=== PATIENT | male | born 1960 | race Asian ===

== ENCOUNTER 2022-02-15 13:53 | Inpatient (IN) ==
[2022-02-15 15:14] LABS: Appearance Urine Turbid (Clear); Bacteria Urine Automated 4+ (Negative); Bilirubin Urine Negative (Negative); Blood Urine 3+ (Negative); Color Urine Yellow; Epithelial Cell Urine Auto >30 /lpf (0-5); Glucose Urine UA Negative (Negative); Ketones Urine Negative (Negative); Leukocyte Esterase Urine 3+ (Negative); Nitrite Urine Positive (Negative); Protein Urine 2+ (Negative); Specific Gravity Urine 1.014 (1.000-1.030); Urobilinogen Urine Negative (Negative); WBC Urine Automated >30 /hpf (0-5); pH Urine 5.5 (4.5-7.5)
[2022-02-15] MEDS ORDERED: SODIUM CHLORIDE 0.9% 1000ML 1,000 ML IV ONE ×2 (15:19→16:46)
[2022-02-15 15:27] LABS: Hematocrit (blood only) 45.7 % (40.1-51.0); Hemoglobin 15.8 g/dl (14.0-18.0); Immature Granulocytes # (auto) 0.03 K/uL (0.00-0.02); Immature Granulocytes % (auto) 0.7 %; Lymphocytes # (auto) 0.13 K/uL (1.2-3.4); Lymphocytes % (auto) 3.2 %; Mean Corpuscular Hemoglobin 30.6 pg (25.0-34.0); Mean Corpuscular Hgb Conc 34.6 g/dL (32.0-36.0); Mean Corpuscular Volume 88.4 fL (80.0-100.0); Mean Platelet Volume 11.5 fL (9.4-12.4); Neutrophils # (auto) 3.46 K/uL (1.4-6.5); Neutrophils % (auto) 86.1 %; Platelet Count 68 K/uL (130-400); Platelet Estimate Decreased (Normal); RDW Coefficient of Variation 12.5 % (11.5-14.5); RDW Standard Deviation 40.5 fL (36.4-46.3); Red Blood Count 5.17 M/uL (4.63-6.08); White Blood Count 4.02 K/ul (4.8-10.8)
[2022-02-15 15:43] LABS: RBC Urine Automated 0-4 /hpf (0-4)
[2022-02-15] MEDS ORDERED: CEFEPIME 2,000 MG/20 ML VIAL IV STA (15:44)
--- NOTE | 2022-02-15 15:58 | XRay Report ---
XR chest 1V portable CLINICAL HISTORY: Fever. COMPARISON STUDY: No previous studies for comparison. FINDINGS: Lung volumes are normal. Lungs are clear. There is no pneumothorax or pleural effusion. Car diac size is normal. Mediastinal contours are normal. There is no evidence for pulmonary edema. IMPRESSION: No acute cardiopulmonary findings. ACT 112: Negative or not required by law. Electronically signed by: Chidi Rodriguez M.D. 02/15/2022 3:56 PM
[2022-02-15 16:00] LABS: Albumin Globulin Ratio 1.2 (0.9-2); Albumin Level 3.8 gm/dl (3.4-5.0); BUN Creatinine Ratio 14.9 (10-20); Bilirubin,Total 1.5 mg/dl (0.2-1.0); Calcium 9.1 mg/dl (8.5-10.1); Creatinine Clr Calc Pharmacy 22.3 ml/min; Est GFR (African American) 26.7 ml/min; Globulin 3.3 gm/dl (2.5-4.0); Potassium 3.7 mmol/L (3.5-5.1); Total Protein 7.1 gm/dl (6.0-8.3)
--- NOTE | 2022-02-15 16:29 | Emergency Department Note ---
Impression & Plan HOLLEY (acute kidney injury), Fever, Acute UTI, Acute hyponatremia, Immunocompromised, Tachycardia ED Provider Note NAME: BENNY WHEELER AGE: 62 SEX: M : 1960 ARRIVES VIA: Walk-In INFORMANT: [Patient][family] ED PROVIDER(S): [Beka Perry MD] CHIEF COMPLAINT: Urinary symptoms HISTORY OF PRESENT ILLNESS: The patient is a 62-year-old male who presents to the ER with 5 or 6 days of fever, chills, urinary frequency and some discomfort to urinate. He went to urgent care today and was referred to the ER. The patient did vomit yesterday. The patient has been using Tylenol for fever. He took 1 dose of Zithromax which did not seem to help-it actually caused some diarrhea. The patient has a kidney transplant. He has not noticed pain over the transplant site. He has not had cough, congestion or shortness of breath. He admits to a decreased appetite and is concerned he may be dehydrated. Of note, the patient resides in [place], he is visiting family. REVIEW OF SYSTEMS: See HPI for pertinent positives and negatives. A total of ten systems were reviewed and were otherwise negative. PMHx/PSHx: See Below SOCIAL HISTORY: See Below. PHYSICAL EXAM: GENERAL: Patient is in no acute distress. HEENT: No acute trauma, normocephalic atraumatic, mucous membranes moist, no nasal congestion, no scleral icterus. NECK: No stridor, no adenopathy, no meningismus, trachea is midline. LUNGS: Clear to auscultation bilaterally, diminished bilaterally, no wheezing. No respiratory distress HEART: Tachycardic with a subtle systolic murmur, there is a regular rhythm. ABDOMEN: Soft, mildly tender in the right pelvis in the area of his renal transplant. No peritonitis. EXTREMITIES: No cyanosis or edema, full range of motion of all the joints without pain or difficulty, no signs for acute trauma. NEUROLOGIC: Oriented x 3, no acute motor or sensory deficits, no focal weakness. SKIN: No rash, no jaundice, no diaphoresis. DIFFERENTIAL DIAGNOSIS: Sepsis, UTI, pneumonia, metabolic abnormality, electrolyte abnormalities, cardia c sources, cellulitis, bacteremia, intracerebral event, toxicologic etiology, neurologic event, immunocompromise, renal failure, as well as other pathologies. EMERGENCY DEPARTMENT COURSE/PROCEDURES: ECG: Patient was possible sepsis. The ECG shows a sinus tachycardia with a rate of 113. There is some nonspecific ST change. No ST elevation. No PVCs. The QTc is 397. Continuous Cardiac Monitoring: An order was placed for continuous cardiac monitoring. The monitor shows a rate of 104 with tachycardia. Critical Care Note: I have personally spent 55 minutes of critical care time in the direct management of this patient. This includes bedside care, interpretation of diagnostic studies, and testing, discussion with consultants, patient, and family members, and other required patient management activities. This 55 minutes is in excess of all separately billable procedures. MEDICAL DECISION MAKING: There is no leukocytosis, in fact, the white count is somewhat low. There is a normal hemoglobin. Platelet count low at 68. I have no old values to use for comparison to see if this is baseline or new. Sodium was low at 120. Creatinine was high at over 2. Lactic acid level was not elevated making severe sepsis less likely. No worrisome liver enzyme elevation. Procalcitonin level was elevated at 44. Urinalysis is consistent with infection. Anaplasmosis and Babesia smears were negative. COVID, influenza and RSV test were negative. Chest x-ray did not show pneumonia or CHF. Abdominal and pelvis CT did not show any hydronephrosis or acute surgical pathology. The transplanted kidney appeared to be without acute pathology. On exam, the patient appeared a bit dehydrated. He appeared weak. He was tachycardic but not hypotensive. Patient was aggressively managed given his complaints and immunocompromise state. He received 2 L of IV saline, he was given IV cefepime as antibiotic coverage. He eventually received dose of IV Tylenol. Patient is in need of a hospital stay. He is from [place] so, he is not known to this country. I did speak with case management, I talked to the patient at length. The on-call hospitalist has been consulted. The patient does feel improved with treatment given in the ED. Past Med/Surg History Medical History Brain aneurysm Cardiac arrhythmia Polycystic kidney disease Surgical History S/P kidney transplant Social History Feels Safe at Home: Yes Allergies Allergies Allergy/AdvReac Type Severity Reaction Status Date / Time No Known Allergies Allergy Verified 02/15/22 17:36 Home Meds Home Medications Medication Instructions Recorded Confirmed allopurinol 100 mg tablet 200 mg PO DAILY 02/15/22 02/15/22 aspirin 81 mg tablet,delayed 81 mg PO DAILY 02/15/22 02/15/22 release cyanocobalamin (vitamin B-12) 1,000 mcg PO DAILY 02/15/22 02/15/22 1,000 mcg tablet (Vitamin B-12) metoprolol succinate 25 mg 12.5 mg PO DAILY 02/15/22 02/15/22 tablet,extended release 24 hr mycophenolate mofetil 500 mg tablet 500 mg PO BID 02/15/22 02/15/22 prednisone 5 mg tablet 5 mg PO DAILY 02/15/22 02/15/22 tacrolimus 1 mg capsule, 1 mg PO BID 02/15/22 02/15/22 immediate-release Results & Data (ED) Vital Signs Vital Signs - 24 hr 02/15/22 14:01 02/15/22 15:58 Temperature 37.7 C H Temperature Source Temporal Artery Scan Pulse Rate 128 H Pulse Rate [Right Finger] 104 H Respiratory Rate 18 20 Respiratory Effort / Characteristics Non-Labored Respiratory Depth Normal Respiratory Pattern Regular Blood Pressure 131/84 Blood Pressure [Right Arm] 136/84 Blood Pressure Mean 99 Blood Pressure Mean [Right Arm] 101 Blood Pressure Position Sitting Pulse Oximetry 100 96 Oxygen Delivery Method Room Air Room Air Sepsis Recent Fever Within 48 Hours Yes Sepsis New/Unexplained Change in Mental Status No Sepsis Action Taken by Nursing No Action Required Home Medications Current Medication List: was personally reviewed by me Laboratory Data Attestation: I reviewed the patient's lab results. Result diagrams: 02/15/22 14:52 02/15/22 21:13 Lab Results 02/15/22 02/15/22 02/15/22 Range/Units 14:52 14:52 14:52 WBC 4.02 L (4.8-10.8) K/ul RBC 5.17 (4.63-6.08) M/uL Hgb 15.8 (14.0-18.0) g/dl Hct 45.7 (40.1-51.0) % MCV 88.4 (80.0-100.0) fL MCH 30.6 (25.0-34.0) pg MCHC 34.6 (32.0-36.0) g/dL RDW Std Deviation 40.5 (36.4-46.3) fL RDW Coeff of Emanuel 12.5 (11.5-14.5) % Plt Count 68 L (130-400) K/uL MPV 11.5 (9.4-12.4) fL Immature Gran % (Auto) 0.7 % Neut % (Auto) 86.1 % Lymph % (Auto) 3.2 % [place] % (Auto) 10.0 % Eos % (Auto) 0.0 % Baso % (Auto) 0.0 % Neut # (Auto) 3.46 (1.4-6.5) K/uL Lymph # (Auto) 0.13 L (1.2-3.4) K/uL [place] # (Auto) 0.40 (0.24-0.82) K/uL Eos # (Auto) 0.00 (0-0.50) K/uL Baso # (Auto) 0.00 (0-0.2) K/uL Immature Gran # (Auto) 0.03 H (0.00-0.02) K/uL Platelet Estimate Decreased L (Normal) Sodium 119 L* (136-145) mmol/L Potassium 3.7 (3.5-5.1) mmol/L Chloride 87 L (98-107) mmol/L Carbon Dioxide 22 (21-32) mmol/L Anion Gap 10 (3-11) BUN 42 H (6-23) mg/dl Creatinine 2.81 H (0.6-1.4) mg/dl Est Cr Clr Drug Dosing 22.3 ml/min Est GFR ( Amer) 26.7 ml/min Est GFR (Non-Af Amer) 23.0 ml/min BUN/Creatinine Ratio 14.9 (10-20) Glucose 98 (70-99(Fasting)) mg/dl Lactate (0.4-2.0) mmol/L Calcium 9.1 (8.5-10.1) mg/dl Total Bilirubin 1.5 H (0.2-1.0) mg/dl AST 24 (13-39) U/L ALT 21 (7-52) U/L Alkaline Phosphatase 90 (34-104) U/L Total Protein 7.1 (6.0-8.3) gm/dl Albumin 3.8 (3.4-5.0) gm/dl Globulin 3.3 (2.5-4.0) gm/dl Albumin/Globulin Ratio 1.2 (0.9-2) Procalcitonin (0-0.5) ng/ml Urine Color Yellow Urine Appearance Turbid A (Clear) Urine pH 5.5 (4.5-7.5) Ur Specific [place] 1.014 (1.000-1.030) Urine Protein 2+ H (Negative) Urine Glucose (UA) Negative (Negative) Urine Ketones Negative (Negative) Urine Blood 3+ H (Negative) Urine Nitrite Positive A (Negative) Urine Bilirubin Negative (Negative) Urine Urobilinogen Negative (Negative) Ur Leukocyte Esterase 3+ H (Negative) Urine WBC (Auto) >30 H (0-5) /hpf Urine RBC (Auto) 0-4 (0-4) /hpf U Hyaline Cast (Auto) 1-5 (0-5) /lpf U Epithel Cells (Auto) >30 H (0-5) /lpf Urine Bacteria (Auto) 4+ H (Negative) Urine Yeast Not Reportable Urine Osmolality (500-800) mOsm/kg Ur Random Sodium mmol/L Anaplasma Smear Babesia Smear SARS-CoV-2 (PCR) (Negative) Influenza Type A (PCR) (Neg) Influenza Type B (PCR) (Neg) RSV (RT-PCR) (Neg) 02/15/22 02/15/22 02/15/22 Range/Units 14:52 14:52 14:52 WBC (4.8-10.8) K/ul RBC (4.63-6.08) M/uL Hgb (14.0-18.0) g/dl Hct (40.1-51.0) % MCV (80.0-100.0) fL MCH (25.0-34.0) pg MCHC (32.0-36.0) g/dL RDW Std Deviation (36.4-46.3) fL RDW Coeff of Emanuel (11.5-14.5) % Plt Count (130-400) K/uL MPV (9.4-12.4) fL Immature Gran % (Auto) % Neut % (Auto) % Lymph % (Auto) % [place] % (Auto) % Eos % (Auto) % Baso % (Auto) % Neut # (Auto) (1.4-6.5) K/uL Lymph # (Auto) (1.2-3.4) K/uL [place] # (Auto) (0.24-0.82) K/uL Eos # (Auto) (0-0.50) K/uL Baso # (Auto) (0-0.2) K/uL Immature Gran # (Auto) (0.00-0.02) K/uL Platelet Estimate (Normal) Sodium (136-145) mmol/L Potassium (3.5-5.1) mmol/L Chloride (98-107) mmol/L Carbon Dioxide (21-32) mmol/L Anion Gap (3-11) BUN (6-23) mg/dl Creatinine (0.6-1.4) mg/dl Est Cr Clr Drug Dosing ml/min Est GFR ( Amer) ml/min Est GFR (Non-Af Amer) ml/min BUN/Creatinine Ratio (10-20) Glucose (70-99(Fasting)) mg/dl Lactate (0.4-2.0) mmol/L Calcium (8.5-10.1) mg/dl Total Bilirubin (0.2-1.0) mg/dl AST (13-39) U/L ALT (7-52) U/L Alkaline Phosphatase (34-104) U/L Total Protein (6.0-8.3) gm/dl Albumin (3.4-5.0) gm/dl Globulin (2.5-4.0) gm/dl Albumin/Globulin Ratio (0.9-2) Procalcitonin 44.03 H (0-0.5) ng/ml Urine Color Urine Appearance (Clear) Urine pH (4.5-7.5) Ur Specific [place] (1.000-1.030) Urine Protein (Negative) Urine Glucose (UA) (Negative) Urine Ketones (Negative) Urine Blood (Negative) Urine Nitrite (Negative) Urine Bilirubin (Negative) Urine Urobilinogen (Negative) Ur Leukocyte Esterase (Negative) Urine WBC (Auto) (0-5) /hpf Urine RBC (Auto) (0-4) /hpf U Hyaline Cast (Auto) (0-5) /lpf U Epithel Cells (Auto) (0-5) /lpf Urine Bacteria (Auto) (Negative) Urine Yeast Urine Osmolality 303 L (500-800) mOsm/kg Ur Random Sodium mmol/L Anaplasma Smear See Comment Babesia Smear See Comment SARS-CoV-2 (PCR) (Negative) Influenza Type A (PCR) (Neg) Influenza Type B (PCR) (Neg) RSV (RT-PCR) (Neg) 02/15/22 02/15/22 02/15/22 Range/Units 14:52 15:58 16:07 WBC (4.8-10.8) K/ul RBC (4.63-6.08) M/uL Hgb (14.0-18.0) g/dl Hct (40.1-51.0) % MCV (80.0-100.0) fL MCH (25.0-34.0) pg MCHC (32.0-36.0) g/dL RDW Std Deviation (36.4-46.3) fL RDW Coeff of Emanuel (11.5-14.5) % Plt Count (130-400) K/uL MPV (9.4-12.4) fL Immature Gran % (Auto) % Neut % (Auto) % Lymph % (Auto) % [place] % (Auto) % Eos % (Auto) % Baso % (Auto) % Neut # (Auto) (1.4-6.5) K/uL Lymph # (Auto) (1.2-3.4) K/uL [place] # (Auto) (0.24-0.82) K/uL Eos # (Auto) (0-0.50) K/uL Baso # (Auto) (0-0.2) K/uL Immature Gran # (Auto) (0.00-0.02) K/uL Platelet Estimate (Normal) Sodium (136-145) mmol/L Potassium (3.5-5.1) mmol/L Chloride (98-107) mmol/L Carbon Dioxide (21-32) mmol/L Anion Gap (3-11) BUN (6-23) mg/dl Creatinine (0.6-1.4) mg/dl Est Cr Clr Drug Dosing ml/min Est GFR ( Amer) ml/min Est GFR (Non-Af Amer) ml/min BUN/Creatinine Ratio (10-20) Glucose (70-99(Fasting)) mg/dl Lactate 1.7 (0.4-2.0) mmol/L Calcium (8.5-10.1) mg/dl Total Bilirubin (0.2-1.0) mg/dl AST (13-39) U/L ALT (7-52) U/L Alkaline Phosphatase (34-104) U/L Total Protein (6.0-8.3) gm/dl Albumin (3.4-5.0) gm/dl Globulin (2.5-4.0) gm/dl Albumin/Globulin Ratio (0.9-2) Procalcitonin (0-0.5) ng/ml Urine Color Urine Appearance (Clear) Urine pH (4.5-7.5) Ur Specific [place] (1.000-1.030) Urine Protein (Negative) Urine Glucose (UA) (Negative) Urine Ketones (Negative) Urine Blood (Negative) Urine Nitrite (Negative) Urine Bilirubin (Negative) Urine Urobilinogen (Negative) Ur Leukocyte Esterase (Negative) Urine WBC (Auto) (0-5) /hpf Urine RBC (Auto) (0-4) /hpf U Hyaline Cast (Auto) (0-5) /lpf U Epithel Cells (Auto) (0-5) /lpf Urine Bacteria (Auto) (Negative) Urine Yeast Urine Osmolality (500-800) mOsm/kg Ur Random Sodium 18 mmol/L Anaplasma Smear Babesia Smear SARS-CoV-2 (PCR) NEGATIVE (Negative) Influenza Type A (PCR) Negative (Neg) Influenza Type B (PCR) Negative (Neg) RSV (RT-PCR) Negative (Neg) Administered Medications Discontinued Medications Acetaminophen (Acetaminophen 1000 Mg/100 Ml Iv) 1,000 mg IV NOW STA Stop: 02/15/22 18:02 Last Admin: 02/15/22 18:11 Dose: 1,000 mg Documented By: NMS Doxycycline Hyclate (Doxycycline Hyclate 100 Mg Cap) 100 mg PO NOW ONE Stop: 02/15/22 17:46 Last Admin: 02/15/22 18:18 Dose: 100 mg Documented By: NMS Sodium Chloride (Nss 1000ml) 1,000 mls @ 999 mls/hr IV .Q1H1M ONE Stop: 02/15/22 16:19 Last Infusion: 02/15/22 17:05 Dose: 0 mls/hr Documented By: Admin: 02/15/22 16:04 Dose: 999 mls/hr Documented By: ELENA Sodium Chloride (Nss 1000ml) 1,000 mls @ 999 mls/hr IV .Q1H1M BENNY Stop: 02/15/22 17:30 Last Admin: 02/15/22 17:14 Dose: Not Given Documented By: ELENA Cefepime HCl (Maxipime) 2,000 mg in 20 mls @ 5 mls/min IV NOW STA; Protocol Stop: 02/15/22 15:47 Last Admin: 02/15/22 16:04 Dose: 5 mls/min Documented By: ELENA Sodium Chloride (Nss 1000ml) 1,000 mls @ 1,000 mls/hr IV .Q1H ONE Stop: 02/15/22 17:45 Last Infusion: 02/15/22 18:11 Dose: 0 mls/hr Documented By: Admin: 02/15/22 17:03 Dose: 1,000 mls/hr Documented By: ELENA Polyethylene Glycol (Polyethylene (Miralax) 17 Gm Pack) 17 gm PO NOW STA Stop: 02/15/22 18:11 Last Admin: 02/15/22 21:29 Dose: Not Given Documented By: OL Imaging Data Radiologist's Impression: Abdomen/Pelvis CT 02/15/22 15:44 CT abd pelvis wo con CLINICAL HISTORY: History of kidney transplant. Evaluate for hydronephrosis COMPARISON STUDY: No previous studies for comparison. CT DOSE: 293.21 mGycm TECHNIQUE: Standard CT of the Abdomen and Pelvis was performed without IV contrast. The patient did not receive oral contrast. A dose lowering technique was utilized adhering to the principles of ALARA. FINDINGS: Lung base: The lung bases are clear. Abdominal cavity: There is no evidence for abdominal mass, adenopathy or ascites. Liver: The liver is homogeneous in attenuation on these limited noncontrast images..Numerous cysts are seen throughout the liver parenchyma corresponding to the patient's polycystic kidney disease. Spleen: The spleen is homogeneous in attenuation on these limited noncontrast images. Pancreas: The pancreas is homogeneous in attenuation on these limited noncontrast images. Gall Bladder: The gallbladder is not visualized. Adrenal glands: The adrenal glands are normal in size and attenuation on these limited noncontrast images. Kidneys: There is marked polycystic disease present involving both agdaagux kidneys. Transplanted kidney is present in the right side of the pelvis. There is no evidence for renal calculus or hydronephrosis of the transplanted kidney. Bowel: There are fluid-filled loops of small bowel seen throughout the abdomen and pelvis without evidence for disproportionate dilatation or obstruction. Findings are characteristic of an ileus versus gastroenteritis. There is mild fecal stasis without impaction or obstruction. There is no evidence for mass lesion. There are no inflammatory changes present. There is no evidence for free air. There is a normal appendix in the right lower quadrant. Bladder: There is distention of the bladder with no evidence for focal bladder wall thickening, calculus or diverticulum. : There is no evidence for pelvic mass or adenopathy. The prostate is mildly enlarged. Vasculature: There is no evidence for focal aneurysmal dilatation of the abdominal aorta. Mild atherosclerotic calcification is present. Osseous structures: There is no acute osseous pathology. IMPRESSION: 1. Marked polycystic kidney and liver disease. 2. Transplanted right pelvic kidney with no evidence for calculus or hydronephrosis. 3. CT findings characteristic of an ileus versus gastroenteritis. 4. No other evidence for acute intra-abdominal or pelvic abnormality on these limited noncontrast images. 5. Additional nonacute findings are delineated above. ACT 112: Negative or not required by law. Electronically signed by: Jorge A Camilo M.D. 02/15/2022 5:18 PM Chest X-Ray 02/15/22 15:44 XR chest 1V portable CLINICAL HISTORY: Fever. COMPARISON STUDY: No previous studies for comparison. FINDINGS: Lung volumes are normal. Lungs are clear. There is no pneumothorax or pleural effusion. Cardiac size is normal. Mediastinal contours are normal. There is no evidence for pulmonary edema. IMPRESSION: No acute cardiopulmonary findings. ACT 112: Negative or not required by law. Electronically signed by: Chidi Rodriguez M.D. 02/15/2022 3:56 PM Discharge Plan Visit Data Chief Complaint: Urinary Symptoms Stated Complaint: URINARY SYMPTOMS ED Provider: Beka Perry Discharge Problem: HOLLEY (acute kidney injury), Fever, Acute UTI, Acute hyponatremia, Immunocompromised, Tachycardia Patient Disposition: Admitted As Inpatient Condition: Fair Discharge Instructions Interventions: ED Discharge Assessment Last Done: 02/15/22 21:24
[2022-02-15] MEDS ORDERED: SODIUM CHLORIDE 0.9% 1000ML 1,000 ML IV SCH (16:30)
--- NOTE | 2022-02-15 16:30 | History & Physical Report ---
Date of Service February 15, 2022 Assessment & Plan (1) Sepsis: Plan: -Admit to medicine -At this time the etiology of the patient's sepsis appears to be a urinary source, UA is suggestive >Cannot rule out Prostatitis at this time with the mildly enlarged prostate on CT >Will continue cefepime (will also cover prostatitis) and add on doxy for now with his immunocompromised stated -Started on Cefepime in the ED and given 2L NSS bolus (Completes sepsis bolus of 1700 mL) -Currently afebrile, hemodynamically stable, and stable on RA -Follow blood/urine cultures and tailor abx as able -Will hold additional IV fluids after sepsis bolus and monitor, can give cherelle tional hydration as necessary -Consider stress dose steroids if patient becomes hypotensive -Lactate pending (2) Kidney transplant status, living unrelated donor: Plan: -Typically on Tacrolimus, Cellcept, and Prednisone for immunosuppression -Will hold cellcept and tacro for now, ordered tacro level -Will continue Prednisone for now to avoid adrenal insufficiency -Will consult Nephrology for assistance with management (3) UTI (urinary tract infection): Plan: -see above (4) Polycystic kidney disease: Plan: -see above (5) HOLLEY (acute kidney injury): Plan: -Baseline Cr appears to be close to 1.0, currently at 2.8 -Likely due to UTI but could also but due to possible obstruction with distended bladder on CT -Will order bladder scans, PVR, and straight cath as needed -Monitor renal function on scheduled BMPs (6) Hyponatremia: Plan: -Sodium currently at 119, baseline appears to be low 130's. -Workup ordered, could be due to obstruction -Will repeat BMP this evening to monitor and ensure he isn't overcorrecting too quickly with the 2L NSS bolus -Goal sodium level tomorrow is 125-128 within the next 24 hours (7) Ileus: Plan: -Noted on CT today -No signs of obstruction -Had bowel movement this am -Will add bowel regimen and monitor (8) Electrocardiogram showing T wave abnormalities: Plan: -No other EKGs to compare current to -Denies Chest pain and SOB -Will repeat EKG now, if any concerns will add on high sensitivity troponin Plan The patient was discussed with Dr. Chavez at the time of admission History of Present Illness Chief Complaint: Fever, chills, dysuria, urinary frequency Primary Care Provider: NO PCP 62 year old male with a PMH significant for polycystic kindey disease S/P kidney transplant approximately 10 yrs ago, previous posterior brain aneurysm (Patient unable to give more details) S/P stenting approxiamtely 12-15 yrs ago, heart arrhythmia (patient unable to give more information), and gout who presented to the [facility] ED on 02/15/22 with complaints of approximately 6 days of fever, chills, urinary frequency, and dysuria. The patient is a resident of [place] and has not received care in the [place] previously. He states that he has had fevers as high as 103, chills, nausea, urinary frequency and poor urinary output during this time. He used tylenol and 1 dose of previously prescribed Zithromax without relief. The patient states that he follows regularly with Nephrology back home and had a normal abdominal US last month. In the ED the patient was found to be tachycardic, leukopenic (4.02), hyponatremic (119; baseline appears to be in the low 130's per data on his phone), hypochloremic (87), and to have an HOLLEY. Per data the patient was able to show me from his last BMP last month, his baseline Cr appears to be close to 1.0, it is currently at 2.81. UA is concerning for infection in the ED. He was given a dose of Cefepime, 2L NSS bolus and just underwent CT of the abdomen and pelvis. Per the patient's data, heis currently on Cellcept, Tacrolimus, and prednisone (5 mg daily) for immunosuppression. Allergies Allergy/AdvReac Type Severity Reaction Status Date / Time No Known Allergies Allergy Verified 02/15/22 17:36 Home Medications Medication Instructions Recorded Confirmed Type allopurinol 100 mg tablet 200 mg PO DAILY 02/15/22 02/15/22 History aspirin 81 mg tablet,delayed 81 mg PO DAILY 02/15/22 02/15/22 History release cyanocobalamin (vitamin B-12) 1,000 mcg PO DAILY 02/15/22 02/15/22 History 1,000 mcg tablet (Vitamin B-12) metoprolol succinate 25 mg 12.5 mg PO DAILY 02/15/22 02/15/22 History tablet,extended release 24 hr mycophenolate mofetil 500 mg tablet 500 mg PO BID 02/15/22 02/15/22 History prednisone 5 mg tablet 5 mg PO DAILY 02/15/22 02/15/22 History tacrolimus 1 mg capsule, 1 mg PO BID 02/15/22 02/15/22 History immediate-release Past Med/Surg History Medical History (Updated 02/15/22 @ 18:09 by Fab Anglin PA-C) Brain aneurysm Cardiac arrhythmia Surgical History (Updated 02/15/22 @ 17:41 by Fab Anglin PA-C) S/P kidney transplant Social History Feels Safe at Home: Yes Review of Systems Review of Systems: Denies current headache,changes in vision, hearing, taste, and smell, chest pain, SOB, cough, abdominal pain, nausea, vomiting, diarrhea, hematemesis, melena, dysuria, hematuria, and recent falls. Physical Exam Physical Exam: Physical Exam: General: In no acute distress, stated age, well-nourished, good hygiene HEENT: Normocephalic, atraumatic, no scleral icterus, pupils around round, symmetrical, and reactive to light, moist mucus membranes, trachea midline, no thyromegaly Chest/Pulm: No respiratory distress, symmetrical chest expansion, clear breath sounds throughout Cardiac: RRR, no murmurs noted Abdomen: scar from previous kidney transplant located in the right lower abdomen is intact, well-healed and non-tender, Negative for ascites and bruising, normoactive bowel sounds, soft, non-tender to palpation throughout Musculoskeletal: Symmetrical and without signs of acute trauma, upper and lower extremities with full ROM, no atrophy, spasticity, or flaccidity Neuro: Alert and oriented to person, place, month, year, and president, no focal defects, CN II-XII tested and intact, finger to nose test negative, no tremors noted Psych: No acute distress, calm and cooperative during the exam Results & Data Results & Data ([facility]) Vital Signs (Past 12 Hours) Vital Signs Temp Pulse Pulse Resp BP BP Pulse Ox 02/15/22 15:58 104 H 20 136/84 96 02/15/22 14:01 37.7 C H 128 H 18 131/84 100 O2 Del Method 02/15/22 15:58 Room Air 02/15/22 14:01 Room Air Laboratory Results Abnormal lab results 02/15/22 02/15/22 02/15/22 Range/Units 14:52 14:52 14:52 WBC 4.02 L (4.8-10.8) K/ul Plt Count 68 L (130-400) K/uL Lymph # (Auto) 0.13 L (1.2-3.4) K/uL Immature Gran # (Auto) 0.03 H (0.00-0.02) K/uL Platelet Estimate Decreased L (Normal) Sodium 119 L* (136-145) mmol/L Chloride 87 L (98-107) mmol/L BUN 42 H (6-23) mg/dl Creatinine 2.81 H (0.6-1.4) mg/dl Total Bilirubin 1.5 H (0.2-1.0) mg/dl Procalcitonin (0-0.5) ng/ml Urine Appearance Turbid A (Clear) Urine Protein 2+ H (Negative) Urine Blood 3+ H (Negative) Urine Nitrite Positive A (Negative) Ur Leukocyte Esterase 3+ H (Negative) Urine WBC (Auto) >30 H (0-5) /hpf U Epithel Cells (Auto) >30 H (0-5) /lpf Urine Bacteria (Auto) 4+ H (Negative) Urine Osmolality (500-800) mOsm/kg 02/15/22 02/15/22 Range/Units 14:52 14:52 WBC (4.8-10.8) K/ul Plt Count (130-400) K/uL Lymph # (Auto) (1.2-3.4) K/uL Immature Gran # (Auto) (0.00-0.02) K/uL Platelet Estimate (Normal) Sodium (136-145) mmol/L Chloride (98-107) mmol/L BUN (6-23) mg/dl Creatinine (0.6-1.4) mg/dl Total Bilirubin (0.2-1.0) mg/dl Procalcitonin 44.03 H (0-0.5) ng/ml Urine Appearance (Clear) Urine Protein (Negative) Urine Blood (Negative) Urine Nitrite (Negative) Ur Leukocyte Esterase (Negative) Urine WBC (Auto) (0-5) /hpf U Epithel Cells (Auto) (0-5) /lpf Urine Bacteria (Auto) (Negative) Urine Osmolality 303 L (500-800) mOsm/kg Diagnostic Findings Abdomen/Pelvis CT 02/15/22 15:44 CT abd pelvis wo con CLINICAL HISTORY: History of kidney transplant. Evaluate for hydronephrosis COMPARISON STUDY: No previous studies for comparison. CT DOSE: 293.21 mGycm TECHNIQUE: Standard CT of the Abdomen and Pelvis was performed without IV contrast. The patient did not receive oral contrast. A dose lowering technique was utilized adhering to the principles of ALARA. FINDINGS: Lung base: The lung bases are clear. Abdominal cavity: There is no evidence for abdominal mass, adenopathy or ascites. Liver: The liver is homogeneous in attenuation on these limited noncontrast images..Numerous cysts are seen throughout the liver parenchyma corresponding to the patient's polycystic kidney disease. Spleen: The spleen is homogeneous in attenuation on these limited noncontrast images. Pancreas: The pancreas is homogeneous in attenuation on these limited noncontrast images. Gall Bladder: The gallbladder is not visualized. Adrenal glands: The adrenal glands are normal in size and attenuation on these limited noncontrast images. Kidneys: There is marked polycystic disease present involving both [place] kidneys. Transplanted kidney is present in the right side of the pelvis. There is no evidence for renal calculus or hydronephrosis of the transplanted kidney. Bowel: There are fluid-filled loops of small bowel seen throughout the abdomen and pelvis without evidence for disproportionate dilatation or obstruction. Findings are characteristic of an ileus versus gastroenteritis. There is mild fecal stasis without impaction or obstruction. There is no evidence for mass lesion. There are no inflammatory changes present. There is no evidence for free air. There is a normal appendix in the right lower quadrant. Bladder: There is distention of the bladder with no evidence for focal bladder wall thickening, calculus or diverticulum. : There is no evidence for pelvic mass or adenopathy. The prostate is mildly enlarged. Vasculature: There is no evidence for focal aneurysmal dilatation of the abdominal aorta. Mild atherosclerotic calcification is present. Osseous structures: There is no acute osseous pathology. IMPRESSION: 1. Marked polycystic kidney and liver disease. 2. Transplanted right pelvic kidney with no evidence for calculus or hydronephrosis. 3. CT findings characteristic of an ileus versus gastroenteritis. 4. No other evidence for acute intra-abdominal or pelvic abnormality on these limited noncontrast images. 5. Additional nonacute findings are delineated above. ACT 112: Negative or not required by law. Electronically signed by: Jorge A Camilo M.D. 02/15/2022 5:18 PM Chest X-Ray 02/15/22 15:44 XR chest 1V portable CLINICAL HISTORY: Fever. COMPARISON STUDY: No previous studies for comparison. FINDINGS: Lung volumes are normal. Lungs are clear. There is no pneumothorax or pleural effusion. Cardiac size is normal. Mediastinal contours are normal. There is no evidence for pulmonary edema. IMPRESSION: No acute cardiopulmonary findings. ACT 112: Negative or not required by law. Electronically signed by: Chidi Rodriguez M.D. 02/15/2022 3:56 PM ECG Additional Comments: Poor data quality, interpretation may be adversely affected Sinus tachycardia Rightward axis T wave abnormality, consider inferior ischemia Abnormal ECG No previous ECGs available Code Status & VTE Plan Code Status full code VTE Prophylaxis Plan VTE Prophylaxis will be ordered: Yes Supervising Physician Co-Signing Physician Notes Patient seen and examined, chart reviewed, case discussed with Fab Anglin PA-C and I agree with the assessment and plan as above except as otherwise noted. Time of bedside assessment patient is in no distress, normotensive, with a tachycardic but regular rate. Skin is warm and slightly moist. Abdomen is nontender. Labs and images reviewed 60-year-old male admitted for sepsis, history of kidney transplantation. Received crystalloid bolus resuscitation, continue prednisone for steroid dependence and adjust dose if needed/pressures continue to drop. Continue cefepime, Doxy. Vanco deferred for renal function. Trend lactate. Patient is immunocompromise with history of transplant status. Nephrology consulted. Suspect urinary source, UC pending. Hyponatremic new, to 119. Agree with management as above, trend. Goal correction no more than 8M EQ per 24 hours. Agree with bowel regimen above. PG Care Time/CCT Total # of Minutes Spent Total Time Spent with Patient: Total time spent is greater than 50% in coordination of care (as documented) at patient's floor/unit and/or counseling patient: [place] [address] Initial Inpt Care Lvl 1 Patient Type New Medical Decision Making Moderate Complexity Diagnoses Sepsis A41.9 Kidney transplant status, living unrelated donor Z94.0 UTI (urinary tract infection) N39.0 Polycystic kidney disease Q61.3 HOLLEY (acute kidney injury) N17.9 Hyponatremia E87.1 Ileus K56.7 Electrocardiogram showing T wave abnormalities R94.31
[2022-02-15 16:56] LABS: Influenza A virus by PCR Negative (Neg); Influenza B virus by PCR Negative (Neg); RSV by PCR Negative (Neg); SARS CoV2 RNA(COVID-19) InHosp NEGATIVE (Negative)
--- NOTE | 2022-02-15 17:20 | CT Scan Report ---
CT abd pelvis wo con CLINICAL HISTORY: History of kidney transplant. Evaluate for hydronephrosis COMPARISON STUDY: No previous studies for comparison. CT DOSE: 293.21 mGycm TECHNIQUE: Standard CT of the Abdomen and Pelvis was performed without IV contrast. The patient did not receive oral contrast. A dose lowering technique was utilized adhering to the principles of SAMM Zapata. FINDINGS: Lung base: The lung bases are clear. Abdominal cavity: There is no evidence for abdominal mass, adenopathy or ascites. Liver: The liver is homogeneous in attenuation on these limited noncontrast images..Numerous cysts ar e seen throughout the liver parenchyma corresponding to the patient's polycystic kidney disease. Spleen: The spleen is homogeneous in attenuation on these limited noncontrast images. Pancreas: The pancreas is homogeneous in attenuation on these limited noncontrast images. Gall Bladder: The gallbladder is not visualized. Adrenal glands: The adrenal glands are normal in size and attenuation on these limited noncontrast im ages. Kidneys: There is marked polycystic disease present involving both [place] kidneys. Transplanted kidne y is present in the right side of the pelvis. There is no evidence for renal calculus or hydronephros is of the transplanted kidney. Bowel: There are fluid-filled loops of small bowel seen throughout the abdomen and pelvis without alyson dence for disproportionate dilatation or obstruction. Findings are characteristic of an ileus versus gastroenteritis. There is mild fecal stasis without impaction or obstruction. There is no evidence fo r mass lesion. There are no inflammatory changes present. There is no evidence for free air. There is a normal appendix in the right lower quadrant. Bladder: There is distention of the bladder with no evidence for focal bladder wall thickening, calcu ru or diverticulum. : There is no evidence for pelvic mass or adenopathy. The prostate is mildly enlarged. Vasculature: There is no evidence for focal aneurysmal dilatation of the abdominal aorta. Mild athero sclerotic calcification is present. Osseous structures: There is no acute osseous pathology. IMPRESSION: 1. Marked polycystic kidney and liver disease. 2. Transplanted right pelvic kidney with no evidence for calculus or hydronephrosis. 3. CT findings characteristic of an ileus versus gastroenteritis. 4. No other evidence for acute intra-abdominal or pelvic abnormality on these limited noncontrast nazanin ges. 5. Additional nonacute findings are delineated above. ACT 112: Negative or not required by law. Electronically signed by: Jorge A Camilo M.D. 02/15/2022 5:18 PM
[2022-02-15] MEDS ORDERED: DOXYCYCLINE HYCLATE 100 MG CAP PO ONE (17:45)
[2022-02-15] MEDS ORDERED: ACETAMINOPHEN 1000 MG/100 ML IV IV STA (18:01)
[2022-02-15] MEDS ORDERED: POLYETHYLENE (MIRALAX) 17 GM PACK PO STA (18:10)
[2022-02-15] MEDS ORDERED: ACETAMINOPHEN 325 MG TAB PO PRN (21:09)
[2022-02-15 21:54] LABS: BUN Creatinine Ratio 16.9 (10-20); Calcium 7.6 mg/dl (8.5-10.1); Creatinine Clr Calc Pharmacy 26.5 ml/min; Est GFR (Non-African American) 28.4 ml/min; Magnesium 1.3 mg/dl (1.7-2.4); Phosphorus 2.2 mg/dl (2.5-4.9); Potassium 3.5 mmol/L (3.5-5.1)
[2022-02-16 03:46] LABS: A calco-baum cmplx NotReported Not Detected (NotDetected); Bact fragilis Not Reported Not Detected (NotDetected); C auris Not Reported Not Detected (NotDetected); CTX-M Resistant Gene Not Detected (NotDetected); Calbicans Not Reported Not Detected (NotDetected); Candida glabrata Not Reported Not Detected (NotDetected); Candida krusei Not Reported Not Detected (NotDetected); Cneoformans/gatti Not Reported Not Detected (NotDetected); Cparapsilosis Not Reported Not Detected (NotDetected); Ctropicalis Not Reported Not Detected (NotDetected); E cloacae compx Not Reported Not Detected (NotDetected); Efaecalis Not Reported Not Detected (NotDetected); Efaecium Not Reported Not Detected (NotDetected); Enterobacterales DETECTED (NotDetected); Enterobacterales Not Reported DETECTED (NotDetected); Escherichia coli Not Reported DETECTED (NotDetected); H influenzae Not Reported Not Detected (NotDetected); IMP Resistant Gene Not Detected (NotDetected); K aerogenes Not Reported Not Detected (NotDetected); KPC Resistant Gene Not Detected (NotDetected); Koxytoca Not Reported Not Detected (NotDetected); Kpneumoniae grp Not Reported Not Detected (NotDetected); Lmonocyt Not Reported Not Detected (NotDetected); N meningitidis Not Reported Not Detected (NotDetected); NDM Resistant Gene Not Detected (NotDetected); OXA 48 Like Resistant Gene Not Detected (NotDetected); P aeruginosa Not Reported Not Detected (NotDetected); Proteus spp Not Reported Not Detected (NotDetected); Salmonella spp Not Reported Not Detected (NotDetected); Smarcescens Not Reported Not Detected (NotDetected); Staph lugdunensis Not Reported Not Detected (NotDetected); Staph spp. Not Reported Not Detected (NotDetected); Staphaureus Not Reported Not Detected (NotDetected); Staphepi Not Reported Not Detected (NotDetected); Stenmaltophilia Not Reported Not Detected (NotDetected); Strep agal(GrpB) Not Reported Not Detected (NotDetected); Strep pneum Not Reported Not Detected (NotDetected); Strep pyog (GrpA) Not Reported Not Detected (NotDetected); Strep spp Not Reported Not Detected (NotDetected); VIM Resistant Gene Not Detected (NotDetected); mcr-1 Colistin Resistant Gene Not Detected (NotDetected)
[2022-02-16] MEDS ORDERED: DOXYCYCLINE HYCLATE 100 MG CAP PO SCH (09:00)
[2022-02-16] MEDS ORDERED: predniSONE 5 MG TAB PO SCH ×2 (09:00)
[2022-02-16 09:08] LABS: Hematocrit (blood only) 39.6 % (40.1-51.0); Hemoglobin 13.7 g/dl (14.0-18.0); Mean Corpuscular Hemoglobin 30.5 pg (25.0-34.0); Mean Corpuscular Hgb Conc 34.6 g/dL (32.0-36.0); Mean Corpuscular Volume 88.2 fL (80.0-100.0); Mean Platelet Volume 11.5 fL (9.4-12.4); Platelet Count 54 K/uL (130-400); RDW Coefficient of Variation 12.3 % (11.5-14.5); RDW Standard Deviation 39.8 fL (36.4-46.3); Red Blood Count 4.49 M/uL (4.63-6.08); White Blood Count 5.56 K/ul (4.8-10.8)
[2022-02-16 09:16] LABS: Albumin Level 3.2 gm/dl (3.4-5.0); BUN Creatinine Ratio 16.6 (10-20); Calcium 8.4 mg/dl (8.5-10.1); Creatinine Clr Calc Pharmacy 27.3 ml/min; Est GFR (African American) 34.2 ml/min; Est GFR (Non-African American) 29.5 ml/min; Magnesium 1.5 mg/dl (1.7-2.4); Phosphorus 2.9 mg/dl (2.5-4.9); Potassium 3.9 mmol/L (3.5-5.1)
[2022-02-16 09:35] LABS: Acanthocytes 1+; Basophils # (auto) 0.01 K/uL (0-0.2); Basophils % (auto) 0.2 %; Dohle Bodies 1+; Echinocytes 2+; Immature Granulocytes # (auto) 0.03 K/uL (0.00-0.02); Immature Granulocytes % (auto) 0.5 %; Lymphocytes # (auto) 0.14 K/uL (1.2-3.4); Lymphocytes % (auto) 2.5 %; Monocytes # (auto) 0.73 K/uL (0.24-0.82); Monocytes % (auto) 13.1 %; Neutrophils # (auto) 4.65 K/uL (1.4-6.5); Neutrophils % (auto) 83.7 %; Poikilocytosis Present; Tear Drop Cells 1+; Toxic Granulation 1+; Toxic Vacuolation 1+
[2022-02-16] MEDS: predniSONE 20 MG TAB PO SCH (10:01)
[2022-02-16] MEDS: POLYETHYLENE (MIRALAX) 17 GM PACK PO SCH (10:01)
[2022-02-16] MEDS: ASPIRIN 81 MG ECTAB PO SCH (10:01)
[2022-02-16] MEDS: TACROLIMUS 0.5 MG CAP PO SCH (13:37)
[2022-02-16] MEDS: MYCOPHENOLATE SUSP 200 MG/1 ML PO SCH ×2 (13:37→20:12)
[2022-02-16] MEDS ORDERED: SODIUM CHLORIDE 3 % 150 ML IV ONE (13:52)
[2022-02-16] MEDS ORDERED: STAT IV STA (13:52)
--- NOTE | 2022-02-16 14:05 | Nephrology Consultation ---
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 admitted with urosepsis, HOLLEY and hyponatremia. Creatinine on admission was 2.8, slightly improved to 2.2 this morning. Sodium was 119 but stayed relatively stable on repeat lab this morning at 1:20 a.m.. Initial blood and urine culture positive for E coli. -- Resume tacrolimus and CellCept home dose and continue on prednisone. Tacrolimus trough level is pending however unlikely HOLLEY secondary to CNI toxicity last trough level a month ago was 6 -- 3% saline 150 mL IV bolus now, check serum sodium at 6:00 p.m. Aim to raise serum sodium up to 128 in next 24 hours. -- continue IV antibiotic for UTI and bacteremia -- with history of prior repeated urinary tract infection with E coli, current E coli UTI leading to bacteremia, eventually he may need chronic suppressive antibiotic therapy. Will follow, Thank you for allowing me to participate in your patient's care. It was a pleasure to see Mr. Polo. History of Present Illness Reason for Consultation: HOLLEY, Hyponatremia, s/p kidney transplant on immunosuppression. Attending Physician: Kyle Morrow MD History of Present Illness Mr. 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 Nephrology consult was requested to manage HOLLEY, hyponatremia and immunosuppressive medications. Mr. Polo is originally from [place] and he came to [place] in mid January to be with his daughter who is a Faculty at [employer]. He presented to ER yesterday with 6 days history of fever, chills, urinary frequency, and dysuria. He used tylenol and 1 dose of previously prescribed Zithromax without relief. he did not take any NSAIDs. He reports having decent p.o. intake last few days. In ER he was found to be febrile and tachycardic. Lab showed leukopenia, HOLLEY and hyponatremia. Creatinine was 2.8 initially and sodium was 119. urine osmolality above 300, TSH, random cortisol was normal. Urinalysis was positive for proteinuria, hematuria, pyuria and 4+ bacteriuria. CT abdomen pelvis without contrast was otherwise unremarkable except bilateral large polycystic kidney, right lower quadrant renal allograft was unremarkable. He was given 2 L of normal saline bolus. blood pressure has been acceptable. Initial blood and urine culture this morning was positive for E coli. History of renal transplant almost 10 years ago from his , for polycystic kidney disease. Has been having excellent allograft function, baseline creatinine has been around 1.0-1.1. Tacrolimus trough level a month ago was 6. he reports 1 episode of rejection immediately after transplant but has been otherwise doing very well for last almost 10 years and following with Nephrology regularly with monthly lab. He has been on tacrolimus 1.5 mg/1 mg, CellCept 500 mg twice a day and prednisone 5 mg daily. he reports prior history of E coli urinary tract infection. History of sinus tachycardia, on metoprolol 12.5 mg daily. On 200 mg of allopurinol for prior history of gout although no recent acute gout attack. no history of posttransplant diabetes or hypertension. He is still febrile and feels tired but otherwise denies any shortness of breath, chest pain, confusion, headache dizziness or lightheadedness. Allergies Allergy/AdvReac Type Severity Reaction Status Date / Time No Known Allergies Allergy Verified 02/15/22 17:36 Home Medications Medication Instructions Recorded Confirmed Type allopurinol 100 mg tablet 200 mg PO DAILY 02/15/22 02/15/22 History aspirin 81 mg tablet,delayed 81 mg PO DAILY 02/15/22 02/15/22 History release cyanocobalamin (vitamin B-12) 1,000 mcg PO DAILY 02/15/22 02/15/22 History 1,000 mcg tablet (Vitamin B-12) metoprolol succinate 25 mg 12.5 mg PO DAILY 02/15/22 02/15/22 History tablet,extended release 24 hr mycophenolate mofetil 500 mg tablet 500 mg PO BID 02/15/22 02/15/22 History prednisone 5 mg tablet 5 mg PO DAILY 02/15/22 02/15/22 History tacrolimus 1 mg capsule, 1 mg PO BID 02/15/22 02/15/22 History immediate-release Patient History Medical History (Updated 02/16/22 @ 14:26 by Luh Elizabeth MD) Bacteremia Brain aneurysm Cardiac arrhythmia Polycystic kidney disease Surgical History S/P kidney transplant Social History Smoking Status: Never smoker Do You Dip or Chew Tobacco: No; Hx Alcohol Use: No Hx Substance Use: No Preferred Language: Kazakh Communication Ability: Effective Ophthalmic Pathologist Required: No Beliefs That Will Affect Care: None Current Living Situation: Spouse Other Information That Helps Us Care for You: No Feels Safe at Home: Yes Safety Concerns: Feels Safe At This Time Assistive Devices: None Review of Systems Review of Systems: detailed review of system was otherwise unremarkable except mentioned above. Physical Exam Constitutional: WD/WN, vitals as above + ill appearing and + thin; no acute distress Eyes: + anicteric sclerae Neck: normal visual inspection Thyroid: no thyromegaly Respiratory: no respiratory distress and no cough Auscultation: lungs clear to auscultation bilaterally Cardiovascular: Rate/Rhythm: regular rate and regular rhythm Heart Sounds: normal S1 and normal S2 Extremities: no edema Gastrointestinal (Abdomen): Inspection/Auscultation: abdomen normal to inspection and normal bowel sounds Percussion/Palpation: abdomen soft; abdomen nontender Nontender right lower quadrant renal allograft. Musculoskeletal: Extremities: extremities normal to inspection Skin: no rashes Neurologic: no focal motor deficits and not confused Psychiatric: Orientation: alert and oriented x 3 Affect: euthymic affect Results & Data ([facility]) Vital Signs (Past 12 Hours) Vital Signs Temp Pulse Resp BP Pulse Ox O2 Del Method 02/16/22 12:14 36.9 C 80 14 148/92 H 98 Room Air 02/16/22 10:04 91 H 16 130/76 96 02/16/22 07:44 38.3 C H 100 H 22 143/82 H 99 Room Air PG Care Time/CCT Total # of Minutes Spent Total Time Spent with Patient: Total time spent is greater than 50% in coordination of care (as documented) at patient's floor/unit and/or counseling patient: Coding Level of Care Code 14615 Inpt Consult Level 5 Diagnoses HOLLEY (acute kidney injury) N17.9 Acute hyponatremia E87.1 Acute UTI N39.0 Immunocompromised D84.9 Polycystic kidney disease Q61.3 Kidney transplant status, living unrelated donor Z94.0 Bacteremia R78.81
[2022-02-16] MEDS: TACROLIMUS 1 MG CAP PO SCH ×2 (14:46→20:58)
[2022-02-16] MEDS: cefTRIAXone SODIUM 2,000 MG in DEXTROSE 5% 50 ML IV SCH (14:47)
[2022-02-16] MEDS ORDERED: CEFEPIME 1,000 MG in SYRINGE 0 ML IV SCH (16:00)
[2022-02-16 18:13] LABS: Albumin Level 3.2 gm/dl (3.4-5.0); BUN Creatinine Ratio 17.4 (10-20); Calcium 8.4 mg/dl (8.5-10.1); Creatinine Clr Calc Pharmacy 29.8 ml/min; Est GFR (African American) 36.1 ml/min; Est GFR (Non-African American) 31.1 ml/min; Phosphorus 3.1 mg/dl (2.5-4.9); Potassium 3.7 mmol/L (3.5-5.1)
[2022-02-16] MEDS ORDERED: LACTATED RINGER'S 1,000 ML IV SCH (18:45)
--- NOTE | 2022-02-16 18:50 | Hospitalist Progress Note ---
Date of Service February 16, 2022 Assessment & Plan (1) Sepsis: Plan: -Continue telemetry -At this time the etiology of the patient's sepsis appears to be a urinary sourc e, UA is suggestive -Started on Cefepime in the ED and given 2L NSS bolus (Completes sepsis bolus of 1700 mL) -Currently afebrile, hemodynamically stable, and stable on RA -Follow blood/urine cultures and tailor abx as able -Apparently just given fluids as sepsis bolus and then stopped, not given any maintenance fluids -Resume NS 80 ml/hr overnight -De-escalate from Cefepime to Ceftriaxone based on biofire (e. coli without resistant markers) -Prelim urine and blood cultures=GNB (biofire showing e. coli) -Await finalized culture data and adjust abx accordingly, as nephrology notes d/t frequency of E. coli UTIs, may warrant chronic abx suppression -Started on stress dose Prednisone d/t sepsis (2) Kidney transplant status, living unrelated donor: Plan: -Typically on Tacrolimus, Cellcept, and Prednisone for immunosuppression -Will consult Nephrology for assistance with management -Resumed his anti-rejection medications -Placed on stress-dose Prednisone (3) UTI (urinary tract infection): Plan: -see above (4) Polycystic kidney disease: Plan: -see above (5) HOLLEY (acute kidney injury): Plan: -Baseline Cr appears to be close to 1.0, but 2.8 on admission down to 2.19 -Likely due to UTI but could also but due to possible obstruction with distended bladder on CT -Will order bladder scans, PVR, and straight cath as needed -Monitor renal function on scheduled BMPs (6) Hyponatremia: Plan: -Sodium currently at 119, baseline appears to be low 130's. -Workup ordered, could be due to obstruction -Will repeat BMP this evening to monitor and ensure he isn't overcorrecting too quickly with the 2L NSS bolus -Goal sodium level tomorrow is 125-128 within the next 24 hours, slowly improved to 124 this afternoon -Repeat labs tomorrow AM (7) Ileus: Plan: -Noted on CT today -No signs of obstruction -Had bowel movement this am -Will add bowel regimen and monitor (8) Electrocardiogram showing T wave abnormalities: Plan: -No other EKGs to compare current to -Denies Chest pain and SOB -Will repeat EKG now, if any concerns will add on high sensitivity troponin Plan As above. Plan has been d/w Dr. Morrow. Admission and Anticipated Discharge Date Admission Date: February 15, 2022 Subjective Patient seen on daily rounds this morning. Pt reports that he is feeling "well" although continues to have urinary urgency and frequency. Denies fever, chills, n/v/d, headache, body aches, cp or dyspnea. Review of Systems Review of Systems: All systems reviewed and are unremarkable except as noted in HPI and below. Denies chills, fatigue, headache, nasal congestion, sore throat, cough, chest pain, shortness of breath, palpitations, orthopnea, PND, abdominal pain, n/v/d, constipation, dysuria, hematuria, back pain, joint pain or swelling, easy bruising or bleeding, skin lesions or rashes. Physical Exam Physical Exam: GENERAL: 62 yo Well-developed, well-nourished M. Appears ill but nontoxic. NAD. LUNGS: Clear to auscultation bilaterally. No W/R/R. CARDIOVASCULAR: Regular rate and rhythm. ABDOMEN: Soft, non-tender and non-distended. BS normoactive x 4 quad. EXTREMITIES: No edema. Non-tender. Peripheral pulses +2/4. NEUROLOGIC: A&O x3. Nonfocal PSYCHIATRIC: Cooperative. Appropriate mood and affect. SKIN: Warm, dry, intact. No rashes or lesions. Results & Data Results & Data ([facility]) Vital Signs (Past 12 Hours) Vital Signs Temp Pulse Pulse Resp BP BP Pulse Ox 02/16/22 16:31 36.5 C 76 18 106/65 99 02/16/22 14:05 36.7 C 93 H 16 132/76 96 02/16/22 15:22 85 02/16/22 15:09 84 18 145/74 H 97 02/16/22 14:30 02/16/22 12:14 36.9 C 80 14 148/92 H 98 02/16/22 10:04 91 H 16 130/76 96 02/16/22 07:44 38.3 C H 100 H 22 143/82 H 99 O2 Del Method 02/16/22 16:31 Room Air 02/16/22 14:05 Room Air 02/16/22 15:22 02/16/22 15:09 Room Air 08/12/22 14:30 Room Air 02/16/22 12:14 Room Air 02/16/22 10:04 02/16/22 07:44 Room Air Laboratory Results 02/16/22 08:41 02/16/22 17:44 PG Care Time/CCT Total # of Minutes Spent Total Time Spent with Patient: Total time spent is greater than 50% in coordination of care (as documented) at patient's floor/unit and/or counseling patient: Coding Level of Care Code 94075 Subseq Hosp Care Lvl 3 Diagnoses Sepsis A41.9 Kidney transplant status, living unrelated donor Z94.0 UTI (urinary tract infection) N39.0 Polycystic kidney disease Q61.3 HOLLEY (acute kidney injury) N17.9 Hyponatremia E87.1 Ileus K56.7 Electrocardiogram showing T wave abnormalities R94.31
[2022-02-16] MEDS: SODIUM CHLORIDE 0.9% 1000ML 1,000 ML IV SCH (19:13)
--- NOTE | 2022-02-17 05:46 | Electrocardiogram Report ---
Test Reason : Blood Pressure : / mmHG Vent. Rate : 113 BPM Atrial Rate : 113 BPM P-R Int : 126 ms QRS Dur : 086 ms QT Int : 290 ms P-R-T Axes : 075 094 030 degrees QTc Int : 397 ms Poor data quality, interpretation may be adversely affected Sinus tachycardia Rightward axis Nonspecific T wave abnormality Abnormal ECG No previous ECGs available Confirmed by Michael River ([id number]) on 02/17/2022 5:45:42 AM Referred By: Confirmed By:Michael River
--- NOTE | 2022-02-17 05:58 | Electrocardiogram Report ---
Test Reason : Blood Pressure : / mmHG Vent. Rate : 115 BPM Atrial Rate : 115 BPM P-R Int : 130 ms QRS Dur : 078 ms QT Int : 288 ms P-R-T Axes : 068 101 062 degrees QTc Int : 398 ms Poor data quality, interpretation may be adversely affected Sinus tachycardia Possible Left atrial enlargement Nonspecific ST abnormality Possible Lateral infarct Rightward axis Borderline ECG When compared with ECG of 15-FEB-2022 14:31, No significant change Confirmed by Michael River ([id number]) on 02/17/2022 5:57:53 AM Referred By: REFERRED SELF Confirmed By:Michael River
[2022-02-17 06:12] LABS: Albumin Level 3.2 gm/dl (3.4-5.0); BUN Creatinine Ratio 21.3 (10-20); Calcium 8.6 mg/dl (8.5-10.1); Creatinine Clr Calc Pharmacy 30.2 ml/min; Est GFR (African American) 36.7 ml/min; Est GFR (Non-African American) 31.7 ml/min; Phosphorus 2.9 mg/dl (2.5-4.9); Potassium 3.7 mmol/L (3.5-5.1)
[2022-02-17] MEDS: TACROLIMUS 0.5 MG CAP PO SCH (08:27)
[2022-02-17] MEDS: TACROLIMUS 1 MG CAP PO SCH ×2 (08:27→20:45)
[2022-02-17] MEDS: ASPIRIN 81 MG ECTAB PO SCH (08:27)
[2022-02-17] MEDS: POLYETHYLENE (MIRALAX) 17 GM PACK PO SCH (08:29)
[2022-02-17] MEDS: SODIUM CHLORIDE 0.9% 1000ML 1,000 ML IV SCH (08:29)
[2022-02-17] MEDS: predniSONE 20 MG TAB PO SCH (10:13)
[2022-02-17] MEDS: MYCOPHENOLATE SUSP 200 MG/1 ML PO SCH ×2 (10:13→20:47)
[2022-02-17] MEDS: SODIUM BICARBONATE 650 MG TAB PO SCH ×2 (11:49→17:39)
[2022-02-17] MEDS: MAGNESIUM SULFATE / D5W 1 GM/100 ML BAG IV SCH ×2 (11:49→12:54)
[2022-02-17 12:59] LABS: Albumin Globulin Ratio 1.2 (0.9-2); Albumin Level 3.2 gm/dl (3.4-5.0); BUN Creatinine Ratio 24.6 (10-20); Bilirubin,Total 0.8 mg/dl (0.2-1.0); Calcium 8.5 mg/dl (8.5-10.1); Est GFR (African American) 42.6 ml/min; Est GFR (Non-African American) 36.7 ml/min; Globulin 2.6 gm/dl (2.5-4.0); Phosphorus 2.5 mg/dl (2.5-4.9); Potassium 3.2 mmol/L (3.5-5.1); Total Protein 5.8 gm/dl (6.0-8.3)
[2022-02-17] MEDS ORDERED: POTASSIUM CHLORIDE CRTAB 20 MEQ TABCR PO STA (13:23)
--- NOTE | 2022-02-17 13:34 | Nephrology Progress Note ---
Date of Service February 17, 2022 Assessment & Plan (1) HOLLEY (acute kidney injury): Plan: LURT. Baseline creatinine ~1.1 mg/dL. eGFR ~65-70 ml/min per records. 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 Creatinine improved to 2.16 mg/dL with supportive care. Clinical presentation consistent with prerenal secondary to dehydration + superimposed ATN. Non-oliguric. CT on admission reviewed. Continue IVF to encourage positive fluid balance. Repeat metabolic profile this evening. Oral NaHCO3 replacement ordered today for NAGMA and hyponatremia. Diarrhea improving. Convert from NSS to balanced IVF requested. IV magnesium and PO potassium replacement have been ordered. Check repeat magnesium with AM labs. (2) Acute hyponatremia: Plan: Due to dehydration and GI losses. Kwame reports mild chronic hyponatremia at baseline. Sodium 134 mmol/L in January. Improving with hydration. Will continue isotonic/balanced IVF with repeat metabolic profile this afternoon. (3) Acute UTI: Plan: E coli. Remains on ceftriaxone. Clinically improving. (4) Bacteremia: Plan: Positive 02/15. Repeat cultures pending. (5) Immunocompromised: Plan: Remains on tacro and Cellcept per home Rx. Tacro trough pending. No changes at t his time. Triple maintenance with prednisone stress-dosing in accordance with infection. (6) Polycystic kidney disease: (7) Kidney transplant status, living unrelated donor: Admission and Anticipated Discharge Date Admission Date: February 15, 2022 Subjective No acute events overnight. Kwame was seen and evaluated with his at the bedside. Medical history and plan of care reviewed with his daughter (Kristen) phone. Kwame overall reports improvement. Appetite is good. Diarrhea improving. No urinary symptoms. No fevers or chills. He denies any fluid retention or edema. Review of laboratory studies from his transplant team demonstrate a creatinine of 105 IU/L, eGFR 65 in September. Review of Systems Review of Systems: All systems reviewed & are unremarkable except as noted in HPI & below Gastrointestinal: + diarrhea/loose stools Physical Exam Constitutional: well developed and + thin; no acute distress Eyes: no scleral abnormality and no corneal abnormality ENMT: Mouth: + dry oral mucous membranes; no oral mucosal abnormality Neck: normal visual inspection and trachea midline Respiratory: normal respiratory effort Auscultation: lungs clear to auscultation bilaterally Cardiovascular: Rate/Rhythm: regular rate Heart Sounds: normal S1 and normal S2 Extremities: no edema Gastrointestinal (Abdomen): RLQ allograft palpable: no tenderness, no bruit Musculoskeletal: Extremities: no cyanosis and no clubbing Skin: normal turgor; no lesions Neurologic: Motor/Sensory: no tremor and no asterixis Psychiatric: Orientation: alert and oriented x 3 Results & Data ([facility]) Vital Signs (Past 12 Hours) Vital Signs Temp Pulse Pulse Resp BP Pulse Ox O2 Del Method 02/17/22 11:51 36.5 C 80 18 132/82 96 Room Air 02/17/22 09:14 80 02/17/22 08:14 36.9 C 84 18 122/75 98 Room Air 02/17/22 04:00 36.6 C 76 18 116/71 97 Room Air Laboratory Results Laboratory Results - last 24 hr 02/16/22 02/17/22 02/17/22 17:44 05:25 05:25 Sodium 124 L 127 L Potassium 3.7 3.7 Chloride 98 100 Carbon Dioxide 17 L 19 L Anion Gap 9 8 BUN 38 H 46 H Creatinine 2.19 H 2.16 H Est Cr Clr Drug Dosing 29.8 30.2 Est GFR ( Amer) 36.1 36.7 Est GFR (Non-Af Amer) 31.1 31.7 BUN/Creatinine Ratio 17.4 21.3 H Glucose 151 H 117 H Calcium 8.4 L 8.6 Phosphorus 3.1 2.9 Magnesium 1.6 L Total Bilirubin AST ALT Alkaline Phosphatase Total Protein Albumin 3.2 L 3.2 L Globulin Albumin/Globulin Ratio 02/17/22 12:28 Sodium 127 L Potassium 3.2 L Chloride 101 Carbon Dioxide 17 L Anion Gap 9 BUN 47 H Creatinine 1.91 H Est Cr Clr Drug Dosing 34.0 Est GFR ( Amer) 42.6 Est GFR (Non-Af Amer) 36.7 BUN/Creatinine Ratio 24.6 H Glucose 111 H Calcium 8.5 Phosphorus 2.5 Magnesium Total Bilirubin 0.8 D AST 21 ALT 19 Alkaline Phosphatase 68 Total Protein 5.8 L Albumin 3.2 L Globulin 2.6 Albumin/Globulin Ratio 1.2 PG Care Time/CCT Total # of Minutes Spent Total Time Spent with Patient: Total time spent is greater than 50% in coordination of care (as documented) at patient's floor/unit and/or counseling patient: Coding Level of Care Code 99218 Subseq Hosp Care Lvl 3 Diagnoses HOLLEY (acute kidney injury) N17.9 Acute hyponatremia E87.1 Acute UTI N39.0 Bacteremia R78.81 Immunocompromised D84.9 Polycystic kidney disease Q61.3 Kidney transplant status, living unrelated donor Z94.0
[2022-02-17] MEDS: NORMOSOL-R 1,000 ML IV SCH ×2 (13:56→21:18)
--- NOTE | 2022-02-17 15:54 | Hospitalist Progress Note ---
Date of Service February 17, 2022 Assessment & Plan (1) Sepsis: Plan: -Continue telemetry -At this time the etiology of the patient's sepsis appears to be a urinary sourc e, UA is suggestive -Started on Cefepime in the ED and given 2L NSS bolus (Completes sepsis bolus of 1700 mL) -Currently afebrile, hemodynamically stable, and stable on RA -Follow blood/urine cultures and tailor abx as able -Apparently just given fluids as sepsis bolus and then stopped, not given any maintenance fluids -Resume NS 80 ml/hr overnight -De-escalate from Cefepime to Ceftriaxone based on biofire (e. coli without resistant markers) -Prelim urine and blood cultures=GNB. Urine cx E. Coli sensitive to Rocephin. -Await finalized culture data and adjust abx accordingly, as nephrology notes d/t frequency of E. coli UTIs, may warrant chronic abx suppression -Started on stress dose Prednisone d/t sepsis, taper back to regular dose (2) Kidney transplant status, living unrelated donor: Plan: -Typically on Tacrolimus, Cellcept, and Prednisone for immunosuppression -Will consult Nephrology for assistance with management -Resumed his anti-rejection medications -Placed on stress-dose Prednisone (again taper back to 5mg q2 days) (3) UTI (urinary tract infection): Plan: -see above (4) Polycystic kidney disease: Plan: -see above (5) HOLLEY (acute kidney injury): Plan: -Baseline Cr appears to be close to 1.0, but 2.8 on admission down to 1.9 -Likely due to UTI but could also but due to possible obstruction with distended bladder on CT -Will order bladder scans, PVR, and straight cath as needed -Monitor renal function on scheduled BMPs -Nephrology consulted, appreciate assistance, changed fluids to Normosol-R (6) Hyponatremia: Plan: -Sodium currently at 119, baseline appears to be low 130's. -Workup ordered, could be due to obstruction -Will repeat BMP this evening to monitor and ensure he isn't overcorrecting too quickly with the 2L NSS bolus -Goal sodium level tomorrow is 125-128 within the next 24 hours, slowly improved to 127 this morning -Repeat labs tomorrow AM (7) Ileus: Plan: -Noted on CT today -No signs of obstruction -Had bowel movement this am -Will add bowel regimen and monitor (8) Electrocardiogram showing T wave abnormalities: Plan: -No other EKGs to compare current to -Denies Chest pain and SOB -Will repeat EKG now, if any concerns will add on high sensitivity troponin Plan As above. Replacement ordered for K+ of 3.2 and Mag of 1.5. Discharge planning, probably can go home as early tomorrow. Plan has been d/w Dr. Morrow. Admission and Anticipated Discharge Date Admission Date: February 15, 2022 Subjective Patient seen on rounds this morning. He is resting comfortably in bed, reports that he feels much better today. No fevers >24 hours. No abd pain, n/v/d, cp or dyspnea. Review of Systems Review of Systems: All systems reviewed and are unremarkable except as noted in HPI and below. Denies chills, fatigue, headache, nasal congestion, sore throat, cough, chest pain, shortness of breath, palpitations, orthopnea, PND, abdominal pain, n/v/d, constipation, dysuria, hematuria, back pain, joint pain or swelling, easy bruising or bleeding, skin lesions or rashes. Physical Exam Physical Exam: GENERAL: 62 yo Well-developed, well-nourished M. NAD. LUNGS: Clear to auscultation bilaterally. No W/R/R. CARDIOVASCULAR: Regular rate and rhythm. ABDOMEN: Soft, non-tender and non-distended. BS normoactive x 4 quad. EXTREMITIES: No edema. Non-tender. Peripheral pulses +2/4. NEUROLOGIC: A&O x3. Nonfocal PSYCHIATRIC: Cooperative. Appropriate mood and affect. SKIN: Warm, dry, intact. No rashes or lesions. Results & Data Results & Data ([facility]) Vital Signs (Past 12 Hours) Vital Signs Temp Pulse Pulse Resp BP Pulse Ox O2 Del Method 02/17/22 11:51 36.5 C 80 18 132/82 96 Room Air 02/17/22 09:14 80 02/17/22 08:14 36.9 C 84 18 122/75 98 Room Air 02/17/22 04:00 36.6 C 76 18 116/71 97 Room Air Laboratory Results 02/16/22 08:41 02/17/22 12:28 PG Care Time/CCT Total # of Minutes Spent Total Time Spent with Patient: Total time spent is greater than 50% in coordination of care (as documented) at patient's floor/unit and/or counseling patient: Coding Level of Care Code 21851 Subseq Hosp Care Lvl 2 Diagnoses Sepsis A41.9 Kidney transplant status, living unrelated donor Z94.0 UTI (urinary tract infection) N39.0 Polycystic kidney disease Q61.3 HOLLEY (acute kidney injury) N17.9 Hyponatremia E87.1 Ileus K56.7 Electrocardiogram showing T wave abnormalities R94.31
[2022-02-17] MEDS: cefTRIAXone SODIUM 2,000 MG in DEXTROSE 5% 50 ML IV SCH (17:39)
[2022-02-17 21:17] LABS: BUN Creatinine Ratio 25.1 (10-20); Creatinine Clr Calc Pharmacy 37.1 ml/min; Est GFR (African American) 47.3 ml/min; Est GFR (Non-African American) 40.8 ml/min; Potassium 3.6 mmol/L (3.5-5.1)
[2022-02-17] MEDS ORDERED: SODIUM CHLORIDE 3 % 100 ML IV ONE (21:19)
[2022-02-17] MEDS ORDERED: STAT IV STA (21:19)
[2022-02-18 08:33] LABS: BUN Creatinine Ratio 26.6 (10-20); Calcium 8.3 mg/dl (8.5-10.1); Creatinine Clr Calc Pharmacy 36.8 ml/min; Est GFR (Non-African American) 41.4 ml/min; Magnesium 1.6 mg/dl (1.7-2.4); Phosphorus 3.4 mg/dl (2.5-4.9); Potassium 3.6 mmol/L (3.5-5.1)
[2022-02-18] MEDS ORDERED: predniSONE 20 MG TAB PO SCH (09:00)
[2022-02-18] MEDS ORDERED: STAT IV STA (09:11)
[2022-02-18] MEDS ORDERED: SODIUM CHLORIDE 3 % 100 ML IV ONE (09:11)
[2022-02-18] MEDS: POLYETHYLENE (MIRALAX) 17 GM PACK PO SCH (09:46)
[2022-02-18] MEDS: MAGNESIUM SULFATE / D5W 1 GM/100 ML BAG IV SCH ×2 (09:47→12:37)
[2022-02-18] MEDS: TACROLIMUS 0.5 MG CAP PO SCH (09:48)
[2022-02-18] MEDS: TACROLIMUS 1 MG CAP PO SCH (09:48)
[2022-02-18] MEDS: SODIUM BICARBONATE 650 MG TAB PO SCH ×2 (09:48→17:08)
[2022-02-18] MEDS: ASPIRIN 81 MG ECTAB PO SCH (09:48)
--- NOTE | 2022-02-18 10:49 | Nephrology Progress Note ---
Date of Service February 18, 2022 Assessment & Plan (1) HOLLEY (acute kidney injury): Plan: LURT. Baseline creatinine ~1.1 mg/dL. eGFR ~65-70 ml/min per records. 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 Creatinine continues to improve with supportive care. Clinical presentation consistent with prerenal secondary to dehydration + superimposed ATN. Non-oliguric. Continue oral NaHCO3 replacement for NAGMA for another 3 days. Diarrhea resolved. C IV magnesium replacement has been ordered this AM. Serum sodium improving with salt replacement. Given continued encouraging trend, I would consider the patient stable for discharge from a nephrology standpoint with close outpatient follow up. (2) Acute hyponatremia: Plan: Due to dehydration and GI losses. Volume status appears euvolemic at this time. Uosm 260, slightly elevated and given some degree of chronic hyponatremia suggestive of possible mild chronic SIADH. Kwame reports mild chronic hyponatremia at baseline. Sodium 134 mmol/L in January. Will provide an added hypertonic bolus this morning which should help normalize sodium. Close outpatient follow up for monitoring labs encouraged after discharge. (3) Acute UTI: Plan: Clinically improving. (4) Bacteremia: Plan: Positive 02/15. Repeat cultures pending. (5) Immunocompromised: Plan: Continue tacrolimus and Cellcept as per home Rx. Resume prednisone 5 mg daily dose at discharge. (6) Kidney transplant status, living unrelated donor: Plan: Follow up with transplant debt counselor next week, as scheduled. Admission and Anticipated Discharge Date Admission Date: February 15, 2022 Subjective No acute events overnight. Kwame feels well this AM. He hopes to be discharged home. Virtual follow up with his transplant debt counselor is scheduled for Saturday. Appetite is good. No diarrhea. No fevers or chills. Denies any urinary symptoms at this time. Review of Systems Review of Systems: All systems reviewed & are unremarkable except as noted in HPI & below Physical Exam Constitutional: well developed and + thin; no acute distress Eyes: no scleral abnormality and no corneal abnormality ENMT: Mouth: no oral mucosal abnormality and oral mucous membranes not dry Neck: normal visual inspection and trachea midline Respiratory: normal respiratory effort Auscultation: lungs clear to auscultation bilaterally Cardiovascular: Rate/Rhythm: regular rate Heart Sounds: normal S1 and normal S2 Extremities: no edema Musculoskeletal: Extremities: no cyanosis and no clubbing Skin: normal turgor; no lesions Neurologic: Motor/Sensory: no tremor and no asterixis Psychiatric: Orientation: alert and oriented x 3 Results & Data ([facility]) Vital Signs (Past 12 Hours) Vital Signs Temp Pulse Pulse Resp BP Pulse Ox O2 Del Method 02/18/22 07:51 36.5 C 61 18 135/78 99 Room Air 02/18/22 07:39 65 02/18/22 03:36 36.8 C 68 18 126/74 97 Room Air 02/17/22 23:00 36.8 C 74 18 122/74 91 Room Air Laboratory Results Laboratory Results - last 24 hr 02/17/22 02/17/22 02/17/22 12:28 20:20 22:40 Sodium 127 L 126 L Potassium 3.2 L 3.6 Chloride 101 99 Carbon Dioxide 17 L 17 L Anion Gap 9 10 BUN 47 H 44 H Creatinine 1.91 H 1.75 H Est Cr Clr Drug Dosing 34.0 37.1 Est GFR ( Amer) 42.6 47.3 Est GFR (Non-Af Amer) 36.7 40.8 BUN/Creatinine Ratio 24.6 H 25.1 H Glucose 111 H 153 H Calcium 8.5 8.0 L Phosphorus 2.5 Magnesium Total Bilirubin 0.8 D AST 21 ALT 19 Alkaline Phosphatase 68 Total Protein 5.8 L Albumin 3.2 L Globulin 2.6 Albumin/Globulin Ratio 1.2 Urine Osmolality 237 L 02/18/22 07:18 Sodium 130 L Potassium 3.6 Chloride 102 Carbon Dioxide 20 L Anion Gap 8 BUN 46 H Creatinine 1.73 H Est Cr Clr Drug Dosing 36.8 Est GFR ( Amer) 48.0 Est GFR (Non-Af Amer) 41.4 BUN/Creatinine Ratio 26.6 H Glucose 107 H Calcium 8.3 L Phosphorus 3.4 Magnesium 1.6 L Total Bilirubin AST ALT Alkaline Phosphatase Total Protein Albumin 3.0 L Globulin Albumin/Globulin Ratio Urine Osmolality PG Care Time/CCT Total # of Minutes Spent Total Time Spent with Patient: Total time spent is greater than 50% in coordination of care (as documented) at patient's floor/unit and/or counseling patient: Coding Level of Care Code 08304 Subseq Hosp Care Lvl 3 Diagnoses HOLLEY (acute kidney injury) N17.9 Acute hyponatremia E87.1 Acute UTI N39.0 Bacteremia R78.81 Immunocompromised D84.9 Kidney transplant status, living unrelated donor Z94.0
[2022-02-18] MEDS: MYCOPHENOLATE SUSP 200 MG/1 ML PO SCH (11:05)
--- NOTE | 2022-02-18 11:34 | Discharge Summary ---
Date of Service February 18, 2022 Admission HPI Per Admitting Provider 62 year old male with a PMH significant for polycystic kindey disease S/P kidney transplant approximately 10 yrs ago, previous posterior brain aneurysm (Patient unable to give more details) S/P stenting approxiamtely 12-15 yrs ago, heart arrhythmia (patient unable to give more information), and gout who presented to the [facility] ED on 02/15/22 with complaints of approximately 6 days of fever, chills, urinary frequency, and dysuria. The patient is a resident of [place] and has not received care in the [place] previously. He states that he has had fevers as high as 103, chills, nausea, urinary frequency and poor urinary output during this time. He used tylenol and 1 dose of previously prescribed Zithromax without relief. The patient states that he follows regularly with Nephrology back home and had a normal abdominal US last month. In the ED the patient was found to be tachycardic, leukopenic (4.02), hyponatremic (119; baseline appears to be in the low 130's per data on his phone), hypochloremic (87), and to have an HOLLEY. Per data the patient was able to show me from his last BMP last month, his baseline Cr appears to be close to 1.0, it is currently at 2.81. UA is concerning for infection in the ED. He was given a dose of Cefepime, 2L NSS bolus and just underwent CT of the abdomen and pelvis. Per the patient's data, heis currently on Cellcept, Tacrolimus, and prednisone (5 mg daily) for immunosuppression. Principal Diagnosis 1. Septicemia d/t E. coli UTI 2. HOLLEY in a pt w/ h/o transplant-improved 3. Hyponatremia-improved 4. Hypomagnesemia-resolved Discharge Exam GENERAL: 62 yo Well-developed, well-nourished M. NAD. LUNGS: Clear to auscultation bilaterally. No W/R/R. CARDIOVASCULAR: Regular rate and rhythm. ABDOMEN: Soft, non-tender and non-distended. BS normoactive x 4 quad. EXTREMITIES: No edema. Non-tender. Peripheral pulses +2/4. NEUROLOGIC: A&O x3. Nonfocal PSYCHIATRIC: Cooperative. Appropriate mood and affect. SKIN: Warm, dry, intact. No rashes or lesions. Discharge Data Allergies Allergy/AdvReac Type Severity Reaction Status Date / Time No Known Allergies Allergy Verified 02/15/22 17:36 Consultations 02/15/22 16:29 ED Decision to Admit Stat 02/15/22 18:12 Consult Nephrology Routine Ordered Studies Abdomen/Pelvis CT 02/15/22 15:44 CT abd pelvis wo con CLINICAL HISTORY: History of kidney transplant. Evaluate for hydronephrosis COMPARISON STUDY: No previous studies for comparison. CT DOSE: 293.21 mGycm TECHNIQUE: Standard CT of the Abdomen and Pelvis was performed without IV contrast. The patient did not receive oral contrast. A dose lowering technique was utilized adhering to the principles of ALARA. FINDINGS: Lung base: The lung bases are clear. Abdominal cavity: There is no evidence for abdominal mass, adenopathy or ascites. Liver: The liver is homogeneous in attenuation on these limited noncontrast images..Numerous cysts are seen throughout the liver parenchyma corresponding to the patient's polycystic kidney disease. Spleen: The spleen is homogeneous in attenuation on these limited noncontrast images. Pancreas: The pancreas is homogeneous in attenuation on these limited noncontrast images. Gall Bladder: The gallbladder is not visualized. Adrenal glands: The adrenal glands are normal in size and attenuation on these limited noncontrast images. Kidneys: There is marked polycystic disease present involving both [place] kidneys. Transplanted kidney is present in the right side of the pelvis. There is no evidence for renal calculus or hydronephrosis of the transplanted kidney. Bowel: There are fluid-filled loops of small bowel seen throughout the abdomen and pelvis without evidence for disproportionate dilatation or obstruction. Findings are characteristic of an ileus versus gastroenteritis. There is mild fecal stasis without impaction or obstruction. There is no evidence for mass lesion. There are no inflammatory changes present. There is no evidence for free air. There is a normal appendix in the right lower quadrant. Bladder: There is distention of the bladder with no evidence for focal bladder wall thickening, calculus or diverticulum. : There is no evidence for pelvic mass or adenopathy. The prostate is mildly enlarged. Vasculature: There is no evidence for focal aneurysmal dilatation of the abdominal aorta. Mild atherosclerotic calcification is present. Osseous structures: There is no acute osseous pathology. IMPRESSION: 1. Marked polycystic kidney and liver disease. 2. Transplanted right pelvic kidney with no evidence for calculus or hydronephrosis. 3. CT findings characteristic of an ileus versus gastroenteritis. 4. No other evidence for acute intra-abdominal or pelvic abnormality on these limited noncontrast images. 5. Additional nonacute findings are delineated above. ACT 112: Negative or not required by law. Electronically signed by: Jorge A Camilo M.D. 02/15/2022 5:18 PM Chest X-Ray 02/15/22 15:44 XR chest 1V portable CLINICAL HISTORY: Fever. COMPARISON STUDY: No previous studies for comparison. FINDINGS: Lung volumes are normal. Lungs are clear. There is no pneumothorax or pleural effusion. Cardiac size is normal. Mediastinal contours are normal. There is no evidence for pulmonary edema. IMPRESSION: No acute cardiopulmonary findings. ACT 112: Negative or not required by law. Electronically signed by: Chidi Rodriguez M.D. 02/15/2022 3:56 PM N Spec: [id number] Collected: 02/15/22 Received: 02/15/[address]: JENNY,ED Copy To: Beka Perry M.D. Source: Blood OV Order: Ordered: Blood Culture Comments: same time. Procedure Result Verified Site Blood Culture Aerobic Final 02/18/22 Organism 1 Escherichia coli Sens Sensitivities to Follow Blood Culture PCR Panel If viewing in EMR, results available under LAB Serology tab. Phoned positive Blood Culture Gram Stain report to MEMO PARADA on 02/16/22 at 0411 [place] [id number]. [place] [id number]. E coli RX M.I.C. --- --------- Amox/Clav S <=8/4 Ampicillin R >16 Amp/Sul R >16/8 Cefazolin I 4 Cefepime S <=2 Ceftriaxone S <=1 Ciprofloxacin S <=0.25 Ertapenem S <=0.5 Gentamicin S <=4 Levofloxacin S <=0.5 Meropenem S <=1 Tobramycin S <=4 Trimeth/Sulfa R >2/38 Pip/Tazo S <=16 S = SENSITIVE I = INTERMEDIATE R = RESISTANT Blood Culture Anaerobic Final 02/18/22 Organism 1 Escherichia coli Hospital Course (1) Sepsis: -Pt with septicemia d/t E. coli UTI -Hospitalized to monitored bed -Urine and blood cultures collected -Empirically started on Cefepime in the ED and given 2L NSS bolus -Kept on maintenance IVF w/ NSS d/t sepsis/uti/hyponatremia/holley -De-escalated from Cefepime to Ceftriaxone based on biofire (e. coli without resistant markers) -Urine cx E. Coli sensitive to Rocephin, blood cultures reflected the same -Await finalized culture data and adjust abx accordingly, as nephrology notes d/t frequency of E. coli UTIs, may warrant chronic abx suppression -Started on stress dose Prednisone d/t sepsis, will quickly taper back to regular dose -Pt is hemodynamically stable at this point, no further fevers or HD instability. Cultures finalized. Will transition to Cefdinir upon d/c x 10 days for total of 14 days of antibiotic treatment. (2) Kidney transplant status, living unrelated donor: -Typically on Tacrolimus, Cellcept, and Prednisone for immunosuppression -Nephrology followed during his hospitalization -Resumed his anti-rejection medications -Placed on stress-dose Prednisone (again taper q2 days back down to normal 5mg dose) -F/u with nephrology/transplant team upon return home to [place] (3) UTI (urinary tract infection): -see above (4) Polycystic kidney disease: -see above (5) HOLLEY (acute kidney injury): -Baseline Cr appears to be close to 1.0, but 2.8 on admission now down to 1.73 -Likely due to UTI but could also but due to possible obstruction with distended bladder on CT -HOLLEY felt to be due to UTI and dehydration-has improved significantly since admission with hydration -Nephrology consulted, appreciate assistance, added sodium bicarb which I do not feel needs to be continued upon d/c -Anticipate renal function will continue to improve at home, can orally rehydrate and 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 -Hydrated with NSS, as well as Hypertonic saline and Normosol -Pt's hyponatremia has corrected nicely (7) Ileus: -Noted on CT today -No signs of obstruction -Had bowel movement this am (8) Electrocardiogram showing T wave abnormalities: -No other EKGs to compare current to -Denies Chest pain and SOB -Repeat EKG unremarkable Plan Patient has responded favorably to treatment. He was given another hypertonic saline infusion today for Na of 130. Repeat labs pending this afternoon but regardless to value, will still plan to discharge today. He can follow up with his established healthcare team upon his return to [place] (where he lives). He has an appt via telemedicine with his PCP scheduled for Saturday which I instructed his daughter to keep as scheduled. Medications will be sent to requested pharmacy. Recommend use of probiotic which can be purchased OTC while he completes antibiotic therapy. Hemodynamically/medically stable for discharge. Plan has been d/w Dr. Morrow who is in agreement. Total Time Total Time Spent Total Time Spent (In Minutes): >30 minutes Discharge Plan Discharge Items Patient Disposition: Home - Self-Care Reason For Visit: FEVERS Discharge Diagnosis: urinary tract infection which spread to blood Condition on Discharge: Fair Activity: Resume your previous activity Non-emergency contact: Primary Care Provider and Reporting Lead Call non-emergency contact if: you have any medication questions and your symptoms worsen Follow-up/Referrals: PCP,NO [Primary Care Provider] - Diet: Regular Addtl Attending Provider Instructions: You were hospitalized due to an infection in your bladder which spread to your blood stream. In addition, your kidneys were not working properly likely due to the infection and dehydration. You were treated with intravenous antibiotics (Rocephin) and given IV fluids to improve your kidneys. Because of the increased stress your body was under from fighting this infection, you were also placed on an increased dose of Prednisone. Upon your return home, please note the followin. Complete course of antibiotics as prescribed-you are being given Cefdinir 300mg, one tablet twice a day. You will need to start this medication on 02/19/22. 2. You are being sent home on a higher dose of Prednisone that you will taper every 2 days back down to your normal dose. You will start on 02/19/22 with Prednisone 40mg (4-10mg tablets). Then on 02/20/22 you will take 30mg (3 tablets) daily for 2 days, then 20mg for 2 days, then 10mg daily for 2 days then you can resume your normal 5mg daily dose. 3. While you are on antibiotics, it is recommended that you purchase an over the counter Probiotic and take it once a day. 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 Please keep your telemedicine visit as scheduled with your established healthcare provider on Tuesday 02/20. It is advised that you rest and do not travel for 10-14 days until after you have completed your full course of antibiotics and are feeling well enough to travel internationally. It is recommended that you follow up with your healthcare team when you return home to [place]. The prescriptions that you are being prescribed have been sent electronically to your requested pharmacy, [facility] on [facility]. If you have any questions following your discharge, you can call the nonemergency number listed on your discharge paperwork. In the event of a medical emergency, call 911. Pending Studies at Discharge: No Stand-Alone Forms: My [facility] [employer], Smoking Cessation Medications and DC Order Prescriptions: New cefdinir 300 mg capsule 300 mg PO BID 10 Days Qty: 20 0RF prednisone 10 mg tablet 10 mg PO DAILY Qty: 16 0RF Rx Instructions: 4 tabs daily x1 day (02/19), 3 tabs daily x2 days, 2 tabs daily x2 days, 1 tab daily x2 days, then resume home dose Continued cyanocobalamin (vitamin B-12) [Vitamin B-12] 1,000 mcg Tablet 1,000 mcg PO DAILY allopurinol 100 mg Tablet 200 mg PO DAILY aspirin 81 mg Tablet,Delayed Release (Dr/Ec) 81 mg PO DAILY mycophenolate mofetil 500 mg Tablet 500 mg PO BID metoprolol succinate 25 mg Tablet Extended Release 24 Hr 12.5 mg PO DAILY tacrolimus 1 mg Capsule 1 mg PO BID Discontinued prednisone 5 mg Tablet 5 mg PO DAILY Discharge Orders: Discharge Order (Routine); Ordered 02/18/22 Ordered By: Margie Johnson Admission Data Admit Date/Time: 02/15/22 16:30 Attending Provider: Kyle Morrow Admit Provider: Jose Chavez Primary Care Provider: PCP,NO Other Providers: Jose Chavez ; Luh Elizabeth Coding Level of Care Code D/C DAY MANAGEMENT >30 MINS Diagnoses Sepsis A41.9 Kidney transplant status, living unrelated donor Z94.0 UTI (urinary tract infection) N39.0 Polycystic kidney disease Q61.3 HOLLEY (acute kidney injury) N17.9 Hyponatremia E87.1 Ileus K56.7 Electrocardiogram showing T wave abnormalities R94.31
[2022-02-18 13:33] LABS: BUN Creatinine Ratio 27.8 (10-20); Calcium 7.9 mg/dl (8.5-10.1); Creatinine Clr Calc Pharmacy 42.2 ml/min; Est GFR (African American) 56.6 ml/min; Est GFR (Non-African American) 48.8 ml/min
[2022-02-18] MEDS ORDERED: POTASSIUM CHLORIDE CRTAB 20 MEQ TABCR PO STA (13:42)
[2022-02-18] MEDS ORDERED: POTASSIUM CHLORIDE / WTR 10 MEQ/100 ML PLCT IV ONE (13:47)
[2022-02-18] MEDS ORDERED: cefTRIAXone SODIUM 2,000 MG in DEXTROSE 5% 50 ML IV SCH (14:00)
[2022-02-19 07:18] LABS: Babesia microti DNA Not Detected (Not Detected)
== END 2022-02-18 17:18 | disposition home or self-care (01) | DRG 872 ==
LOC: ED 13:53 → EDINP 16:30 → SUATTDRO 16:30 → 2N 02-16 14:03
DX: T86.19 Other complication of kidney transplant; A41.51 Sepsis due to Escherichia coli [E. coli]; E83.42 Hypomagnesemia; Z79.82 Long term (current) use of aspirin; D84.821 Immunodeficiency due to drugs; Z79.899 Other long term (current) drug therapy; E87.1 Hypo-osmolality and hyponatremia; R94.31 Abnormal electrocardiogram [ECG] [EKG]; N17.9 Acute kidney failure, unspecified; Q61.3 Polycystic kidney, unspecified; Y83.0 Surgical operation with transplant of whole organ as the cause of abnormal reaction of the patient, or of later complication, without mention of misadventure at the time of the procedure; N39.0 Urinary tract infection, site not specified; K56.7 Ileus, unspecified; Y92.009 Unspecified place in unspecified non-institutional (private) residence as the place of occurrence of the external cause; Z79.52 Long term (current) use of systemic steroids